=== PATIENT | male | born 1955 | race African-American/Black ===

== ENCOUNTER 2021-11-01 11:40 | Emergency (ER) | payer MEDICAID ==
[~2021-11-01] VITALS: Ht 180.3 cm; Wt 134.3 kg
--- NOTE | 2021-11-01 12:11 | NUR ---
BIB RA78 FROM STRE[place] C/O BILATERAL LOWER EXTREMITY EDEMA AND SOB FOR FEW DAYS. AAOX4, BREATHING EVEN AND UNLABORED. ON MONITOR. POX 100% ON RA. WILL CONTNUE TO MONITOR.
[2021-11-01] MEDS ORDERED: FUROSEMIDE 40 MG TABLET PO ONE (12:30)
[2021-11-01] MEDS ORDERED: POTA-58 PO (13:17)
[2021-11-01] MEDS ORDERED: FURO-144 PO (13:17)
[2021-11-01 13:18] LABS: BASOPHILS % (AUTO) 0.3 % (0.0-2.0); EOSINOPHILS % (AUTO) 1.4 % (0.0-6.0); HEMATOCRIT 41 % (39-51); HEMOGLOBIN 13.2 g/dL (13.5-17.5); LYMPHOCYTES # (AUTO) 1.7 K/uL (0.8-4.8); LYMPHOCYTES % (AUTO) 16.5 % (20.0-44.0); MEAN CORPUSCULAR HGB CONC 32 g/dl (31.0-36.0); MEAN CORPUSCULAR VOLUME 75 fL (80-96); MONOCYTES # (AUTO) 0.8 K/uL (0.1-1.30); MONOCYTES % (AUTO) 7.9 % (2.0-12.0); NEUTROPHILS # (AUTO) 7.5 K/uL (1.8-8.9); NEUTROPHILS % (AUTO) 73.9 % (43.0-81.0); PLATELET COUNT (AUTO) 363 K/uL (150-450); RED BLOOD CELL COUNT(AUTO) 5.45 MIL/uL (4.5-6.0); WHITE BLOOD COUNT (AUTO) 10.2 K/uL (4.3-11.0)
--- NOTE | 2021-11-01 13:48 | NUR ---
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
--- NOTE | 2021-11-01 13:50 | NUR ---
REMY CALLED LEFT VM
--- NOTE | 2021-11-01 13:56 | NUR ---
IV removed. Catheter intact and site benign. Pressure and 4x4 applied to site. No bleeding noted.
--- NOTE | 2021-11-01 14:45 | NUR ---
SS Consult: SS Consult requested for homeless discharge. The pt. is a 66 year old Black male who was BIBRA due Lower bilateral extremity swelling. The pt. is alert & oriented x 4 and makes good eye contact. The pt. appears well-groomed. The pt. denies SI/HI and denies hallucinations. The pt.'s speech is clear with normal thought process. BRIANDA explored pt.'s support system. Pt. stated "please don't ask me that". BRIANDA explored is pt. receives financial assistance. Pt. stated he receives about $1,000 SSI monthly. Pt. stated he interested in penitentiary placement. Pt. denies Hx. of mental illness. Pt. denies drug or alcohol abuse. Pt. states he uses front wheel walker to ambulate. BRIANDA provided pt. with bus TAP card and printed bus directions to [facility][[id number] [facility] [place] [address]; [phone]]. BRIANDA called [facility] and they stated the pt. would need to show up in person for eval and they will assist with penitentiary placement. Noted. Pt. is agreeable. BRIANDA offered pt. homeless resources and pt. refused. The pt. signed homeless waiver and it was placed in the pt.'s chart. Year-round shelters: [facility] [address] [place], [place] [id number] ; [facility] [address] [place] [address]; [facility] Jykqfnb6149 [facility] [address] Winter Shelters: SPA 2 | [facility]Provider: [facility] Address: Confidential (call for location ) Population Served: Coed # of Beds: 57 SPA 4 | [facility] Provider: [facility] Address: [address] [place], [place] [id number] # of Beds: 49 Population Served: Coed SPA 6 | [facility] Provider: [facility] Last Address: [address] [place] [address] # of Beds: 49 Population Served: Coed Adin [facility] Provider: Lluvia GUTIERRES Address: [address] [facility] [address] # of Beds: 20 Population Served: Women RUPAL Facility Provider: [facility] Address: [address] [facility] [address] # of Beds: 30 Population Served: Women SPA 8 | [facility] Library Provider: Reuben of Connie Address: [address] [facility] [address] # of Beds: 65 Population Served: Coed Hygiene: [facility] [place] [facility]: [address] [facility] ; [facility] [facility] [address] [facility] ; [facility] [address] [facility] [place] . Food Resources: [place] [facility]- [address] [facility]; Meet Each Need with [facility]ign[facility] ([facility]) [address] [facility]; [facility] [address] [facility]; [facility] [address] [facility] [place]. Mental Health resources provided: [facility] [address] [place], [place] [phone] ; [facility] [place] [address] [facility] [address], [place], [place] [id number] ; Leslie Baptiste [facility] [address] [place] [address] ; [facility] [address] [place], [place] [id number] Healthcare Clinics: [facility] [address] [facility], [address] [place]. [place] ; [facility] [address] [facility] [address] [place] [address]; [facility] [address] [place] [phone]) [phone] Counseling--Outpatient [facility] [address], [place] [address] (Specializes in in-depth psychotherapy for emotional distress: anxiety, depression, interpersonal conflicts, life transitions, childhood abuse) [facility] [address] [place], [place] [phone] (Assist with solving problem marital difficulties, separation & divorce, aging parents, & grief, chronic & terminal illness) [facility] [address] [place] [address] (Deal with loss & grief, anxiety, marital difficulties) Homebound/Mental Health Services [address] [facility] [address] [place], [place] [id number] (Provide in-home mental services to people who are incapable of leaving their homes) [facility] Senior Service/Resource Center [address] [place] [address] [facility] [address] Shayy HernandezPhil[place], [place] [phone] PSYCHIATRIC OUTPATIENT SERVICES [facility] Partial Hospitalization and Intensive Outpatient Program (Managed Care and [place] Only) [address] [facility] [id number] [facility] Partial Hospitalization [facility] Outpatient Program [address] [facility] [address] [place], [place] [id number] [facility] [address] [facility] [address] [place], [place] [phone] [facility] Partial Hospitalization and Outpatient Program [address] [place], [place] [phone] Substance Abuse resources provided included: [facility] Substance Abuse Self-Helpline (SASH) ; CRI [facility]HELP [address] [facility]. [place] [id number] ; [facility] [address] [facility] [address] ; [facility] [address] [facility] [phone] ; [facility] [address] [facility] [address] ; [facility] [address] [facility] [address] ; [facility] [address] [facility] [phone] ; [facility] Substance Abuse Helpline(SAS)[facility] ; [facility] ; [facility]; [facility]; [facility] [place]; [facility] Yaniv King; [facility] [place] [place]; [facility] [place]; [facility] [place], [facility]. [place]; Alcoholics Anonymous -SFV; Ea-Vkuf-Lacyqpk ; Marijuana Anonymous -SFV; Narcotics Anonymous [email or web address];
--- NOTE | 2021-11-01 14:55 | NUR ---
Patient discharged to home in stable condition. Written and verbal after care instructions given. Patient verbalizes understanding of instruction.
[2021-11-01 15:16] VITALS: BP 132/72
== END 2021-11-01 14:55 | disposition home or self-care (01) ==
LOC: ER 11:44
DX: R60.0 Localized edema (principal); I10 Essential (primary) hypertension; E66.01 Morbid (severe) obesity due to excess calories; Z68.41 Body mass index [BMI] 40.0-44.9, adult; J44.9 Chronic obstructive pulmonary disease, unspecified
CPT/HCPCS: 36415; 71045-TC; 84484-TC; 85025-TC; 85730-TC